=== PATIENT | male | born 1960 | race Hispanic/Latino ===

== ENCOUNTER 2024-05-12 16:22 | Emergency (ER) | payer SELFPAY ==
[~2024-05-12] VITALS: Ht 154.9 cm; Wt 61.2 kg
[2024-05-12] VITALS (8 sets, daily range): BP systolic 80–148; BP diastolic 60–81
[2024-05-12] MEDS ORDERED: IBUPROFEN 600 MG/TAB PO ONE (16:35)
[2024-05-12] MEDS ORDERED: ONDANSETRON HCl 4 MG/2 ML SDV IV ONE (16:55)
[2024-05-12] MEDS ORDERED: MORPHINE SULFATE 4 MG/ML VIAL IV ONE (16:55)
[2024-05-12 17:17] LABS: BASO% 0.8 % (0-3); EOS% 5.2 % (0-8); HEMATOCRIT 39.9 % (39.0-50.0); HEMOGLOBIN 12.9 g/dl (14.0-18.0); IMMATURE GRANULOCYTES 0.5 % (0.0-5.0); LYMPH% 32.5 % (15-41); MEAN CELL VOLUME 94.8 fL CALC (80.0-100.0); MEAN CORPUSCULAR HGB 30.6 pG CALC (26.0-32.0); MEAN CORPUSCULAR HGB CONC 32.3 g/dL CAL (32.0-36.0); MONO% 5.1 % (2-13); NEUT# 5.13 thou/uL (1.82-7.42); NEUT% 55.9 % (42-76); RED BLOOD COUNT 4.21 mill/uL (4.70-6.10); RED CELL DISTRI WIDTH 12.6 % (11.5-15.5)
[2024-05-12 17:38] LABS: ALBUMIN 3.8 g/dL (3.2-5.0); BILIRUBIN, TOTAL 0.5 mg/dL (0.2-1.3); CREATININE 0.8 mg/dL (0.7-1.3); POTASSIUM 3.8 mmol/l (3.5-5.1); TOTAL PROTEIN 6.6 g/dL (6.3-8.2)
== END 2024-05-12 19:12 | DRG 563 ==
LOC: ED 16:22
PROVIDERS: Emergency Medicine
DX: S92.322A Displaced fracture of second metatarsal bone, left foot, initial encounter for closed fracture (principal); S92.332A Displaced fracture of third metatarsal bone, left foot, initial encounter for closed fracture; S92.342A Displaced fracture of fourth metatarsal bone, left foot, initial encounter for closed fracture; V13.4XXA Pedal cycle driver injured in collision with car, pick-up truck or van in traffic accident, initial encounter; Y93.55 Activity, bike riding
CPT/HCPCS: J2405